=== PATIENT | female | born 1935 ===

== ENCOUNTER 2022-05-21 08:49 | Day surgery (SDC) | payer MEDICARE ==
[~2022-05-21] VITALS: Ht 162.6 cm; Wt 74.4 kg
[~2022-05-21 08:49] MED LIST: AMLO5 PO; ASPI325 PO; GLUCOPHAGE1000 M1 PO; METO100ER PO
== END 2022-05-21 10:46 | disposition home or self-care (01) ==
LOC: ORSCSDS 08:49
PROVIDERS: Student in an Organized Health Care Education/Training Program
PROC: 08DJ3ZZ Extraction of Right Lens, Percutaneous Approach (ICD-10-PCS; principal; 2022-05-21 10:30)
DX: H25.11 Age-related nuclear cataract, right eye (principal); Z96.1 Presence of intraocular lens; E11.9 Type 2 diabetes mellitus without complications; I10 Essential (primary) hypertension; Z79.82 Long term (current) use of aspirin; Z79.84 Long term (current) use of oral hypoglycemic drugs; Z79.899 Other long term (current) drug therapy
CPT/HCPCS: 82947; J2001; J2250; J3010; J7040; V2632